=== PATIENT | female | born 1990 | race American Indian/Alaskan Native ===

== ENCOUNTER 2017-05-30 17:50 | Emergency (ER) | payer BC, OTHER ==
[2017-05-30 18:08] VITALS: BP 126/67
[2017-05-30] MEDS ORDERED: Sodium Chloride 0.9% 10 ML Syringe FLUSH PRN (18:48)
[2017-05-30] MEDS ORDERED: Pantoprazole 40 MG Vial IVPUSH ONE (18:48)
[2017-05-30] MEDS ORDERED: HYDROmorphone 0.5 MG/0.5 ML Syringe IVPUSH ONE ×2 (18:48→20:39)
[2017-05-30] MEDS ORDERED: Ondansetron 4 MG/2 ML SDV IVPUSH ONE (18:48)
[2017-05-30] MEDS ORDERED: Sodium Chloride 0.9% 1,000 ML IV ONE (18:48)
--- NOTE | 2017-05-30 18:56 | EDM.PDOC ---
ED HPI GENERAL MEDICAL PROBLEM - General Chief Complaint: Abdominal Pain Stated Complaint: ABDOMINAL PAIN/VOMITING Time Seen by Provider: 05/30/17 18:34 Source of Information: Reports: Patient History Limitations: Reports: Other (Severe headache, tearful) - History of Present Illness INITIAL COMMENTS - FREE TEXT/NARRATIVE: Patient is a 26-year-old female presents ED complaining of severe headache and abdominal pain. Patient states symptoms came on at around noon today. She's been nauseated and vomiting a few times since onset. With coughing symptoms worsen. She is experiencing some photophobia. In addition complains of generalized abdominal discomfort described as a sharp sensation that waxes and wanes in intensity. States shes had multiple bowel movements described as soft and black in color. She has history of anemia requiring blood transfusion 3 wks ago. Scheduled to see a GI doctor in [place] to which she missed appt. States this was rescheduled but did not go since belly was feeling better. She has a history of chronic constipation to which she denies at this time. In addition has a history of acid reflux and has been taking omeprazole religiously. She has chronic back discomfort and is on tramadol and a muscle relaxer for the discomfort. She recently stopped taking these medications after only short-term use. She states the medications made her feel bad. Cough is nonproductive starting today. She denies any sinus congestion, runny nose, sore throat, or ear pain. She's had no fever although she's felt warm at times. Unclear what medications he is currently on. She does not have a complete list. Denies being . Patient has no hx of migraine headache. Headache is severe in nature. She denies recent hx of mosquito bites or exposure to anybody with similar symptoms. Treatments DIRECTOR OPERATING ROOM: Reports: Other (see below) Other Treatments DIRECTOR OPERATING ROOM: tylenol 2 tabs Headache Pain Score (Numeric/FACES): 10 - Related Data Allergies Allergy/AdvReac Type Severity Reaction Status Date / Time No Known Allergies Allergy Verified 05/30/17 18:17 Home Meds: Home Meds Docusate Sodium [Colace] 100 mg PO DAILY 05/30/17 [History] Ferrous Sulfate [Iron] 0 mg PO DAILY 05/30/17 [History] Past Medical History Gastrointestinal History: Reports: Chronic Constipation Other Gastrointestinal History: due bowel surgery Hematologic History: Reports: Anemia - Past Surgical History GI Surgical History: Reports: Appendectomy Other GI Surgeries/Procedures: infection post surgical appy due to ruptured appy ; small bowel and large bowel sections removed due to appy complications Social & Family History - Tobacco Use Smoking Status *Q: Current Every Day Smoker Years of Tobacco use: 5 Packs/Tins Daily: 0.5 - Caffeine Use Caffeine Use: Reports: Coffee, Tea - Recreational Drug Use Recreational Drug Type: Reports: Marijuana/Hashish ED ROS GENERAL - Review of Systems Review Of Systems: See Below Constitutional: Reports: Fever, Chills, Malaise, Weakness, Decreased Appetite HEENT: Reports: No Symptoms. Denies: Vision Change Respiratory: Reports: Cough. Denies: Shortness of Breath, Sputum Cardiovascular: Denies: Chest Pain, Dyspnea on Exertion, Palpitations, PND Endocrine: Reports: Fatigue GI/Abdominal: Reports: Abdominal Pain, Black Stool, Decreased Appetite, Difficulty Swallowing, Melena, Nausea, Vomiting, Other (Patient has had multiple abdominal surgeries.). Denies: Bloody Stool, Constipation, Diarrhea, Hematemesis, Hematochezia : Reports: No Symptoms Musculoskeletal: Reports: No Symptoms Skin: Denies: Rash Neurological: Reports: Dizziness, Headache, Weakness. Denies: Numbness, Tingling Hematologic/Lymphatic: Reports: Anemia. Denies: Easy Bruising Free Text/Narrative/Comment: Patient denies any history of recent mosquito or was tick bites. - Physical Exam Exam: See Below Exam Limited By: No Limitations General Appearance: Alert, WD/WN, Severe Distress (towel over her head.) Eye Exam: Bilateral Eye: EOMI, PERRL Ears: Hearing Grossly Normal Nose: Normal Inspection Throat/Mouth: Normal Inspection, Normal Oropharynx, Normal Voice, No Airway Compromise Head Exam: Atraumatic, Facial Tenderness (forehead) Neck: Normal Inspection, Supple, Non-Tender, Full Range of Motion, Other (No nuchal rigidity. ) Respiratory/Chest: No Respiratory Distress, Lungs Clear, Normal Breath Sounds, No Accessory Muscle Use, Chest Non-Tender Cardiovascular: Normal Peripheral Pulses, Regular Rate, Rhythm GI/Abdominal: Normal Bowel Sounds, Soft, No Organomegaly, No Distention, Tender (generalized) Neuro Exam (Abbreviated): Alert, Oriented, CN II-XII Intact, Normal Cognition, No Motor/Sensory Deficits Back Exam: Normal Inspection Extremities: Normal Inspection, Normal Range of Motion, Non-Tender Psychiatric: Tearful Skin Exam: Warm, Dry, Intact, Normal Color, No Rash Course - Vital Signs Last Recorded V/S: Last Vital Signs Temp 97.8 F 05/30/17 18:06 Pulse 80 05/30/17 18:06 Resp 20 05/30/17 18:06 BP 126/67 05/30/17 18:06 Pulse Ox 100 05/30/17 18:06 - Orders/Labs/Meds Orders: Active Orders 24 hr Category Date Time Status Peripheral IV Care [RC] . DIRECTED Care 05/30/17 18:48 Active [facility] [REF] Stat Lab 05/30/17 18:20 Received Sodium Chloride 0.9% [Saline Flush] Med 05/30/17 18:48 Active 10 ml FLUSH ASDIRECTED PRN Peripheral IV Insertion Adult [OM.PC] Stat Oth 05/30/17 18:48 Ordered Medication Orders Sodium Chloride (Saline Flush) 10 ml FLUSH ASDIRECTED PRN PRN Reason: Keep Vein Open Last Admin: 05/30/17 19:08 Dose: 10 ml Labs: Laboratory Tests 05/30/17 05/30/17 05/30/17 Range/Units 18:20 18:20 18:20 WBC 10.47 H (3.98-10.04) K/mm3 RBC 4.64 (3.98-5.22) M/mm3 Hgb 9.1 L (11.2-15.7) gm/L Hct 30.1 L (34.1-44.9) % MCV 64.9 L (79.4-94.8) fl MCH 19.6 L (25.6-32.2) pg MCHC 30.2 L (32.2-35.5) g/dl RDW Std Deviation 59.2 H (36.4-46.3) fL Plt Count 590 H (182-369) K/mm3 MPV 9.4 (9.4-12.3) fl Neut % (Auto) 83.9 H (34.0-71.1) % Lymph % (Auto) 9.2 L (19.3-51.7) % Barnes % (Auto) 6.2 (4.7-12.5) % Eos % (Auto) 0.3 L (0.7-5.8) Baso % (Auto) 0.2 (0.1-1.2) % Neut # (Auto) 8.79 H (1.56-6.13) K/mm3 Lymph # (Auto) 0.96 L (1.18-3.74) K/mm3 Barnes # (Auto) 0.65 H (0.24-0.36) K/mm3 Eos # (Auto) 0.03 L (0.04-0.36) K/mm3 Baso # (Auto) 0.02 (0.01-0.08) K/mm3 Manual Slide Review Abnormal smear ESR (0-20) mm/hr Sodium 138 (136-145) mEq/L Potassium 3.9 (3.5-5.1) mEq/L Chloride 103 (98-107) mEq/L Carbon Dioxide 24 (21-32) mEq/L Anion Gap 14.9 (5-15) BUN 8 (7-18) mg/dL Creatinine 1.0 (0.55-1.02) mg/dL Est Cr Clr Drug Dosing 83.13 mL/min Estimated GFR (MDRD) > 60 (>60) mL/min BUN/Creatinine Ratio 8.0 L (14-18) Glucose 96 (74-106) mg/dL Calcium 9.1 (8.5-10.1) mg/dL Total Bilirubin 0.5 (0.2-1.0) mg/dL AST 26 (15-37) U/L ALT 25 (14-59) U/L Alkaline Phosphatase 66 (46-116) U/L C-Reactive Protein < 0.2 (<1.0) mg/dL Total Protein 7.5 (6.4-8.2) g/dl Albumin 3.8 (3.4-5.0) g/dl Globulin 3.7 gm/dL Albumin/Globulin Ratio 1.0 (1-2) Lipase 97 (73-393) U/L TSH 3rd Generation 0.546 (0.358-3.74) uIU/mL HCG, Qual Negative (NEGATIVE) Urine Color (Yellow) Urine Appearance (Clear) Urine pH (5.0-8.0) Ur Specific [place] (1.005-1.030) Urine Protein (Negative) Urine Glucose (UA) (Negative) Urine Ketones (Negative) Urine Occult Blood (Negative) Urine Nitrite (Negative) Urine Bilirubin (Negative) Urine Urobilinogen (0.2-1.0) Ur Leukocyte Esterase (Negative) Urine RBC (0-5) /hpf Urine WBC (0-5) /hpf Ur Epithelial Cells (0-5) /hpf Amorphous Sediment (NOT SEEN) /hpf Urine Bacteria (FEW) /hpf Urine Mucus (FEW) /hpf Urine Opiates Screen (NEGATIVE) Ur Buprenorphine Scrn (NEGATIVE) Ur Oxycodone Screen (NEGATIVE) Urine Methadone Screen (NEGATIVE) Ur Propoxyphene Screen (NEGATIVE) Ur Barbiturates Screen (NEGATIVE) Ur Tricyclics Screen (NEGATIVE) Ur Phencyclidine Scrn (NEGATIVE) Ur Amphetamine Screen (NEGATIVE) U Methamphetamines Scrn (NEGATIVE) U Benzodiazepines Scrn (NEGATIVE) U Cocaine Metab Screen (NEGATIVE) U Marijuana (THC) Screen (NEGATIVE) 05/30/17 05/30/17 05/30/17 Range/Units 18:20 19:30 19:30 WBC (3.98-10.04) K/mm3 RBC (3.98-5.22) M/mm3 Hgb (11.2-15.7) gm/L Hct (34.1-44.9) % MCV (79.4-94.8) fl MCH (25.6-32.2) pg MCHC (32.2-35.5) g/dl RDW Std Deviation (36.4-46.3) fL Plt Count (182-369) K/mm3 MPV (9.4-12.3) fl Neut % (Auto) (34.0-71.1) % Lymph % (Auto) (19.3-51.7) % Barnes % (Auto) (4.7-12.5) % Eos % (Auto) (0.7-5.8) Baso % (Auto) (0.1-1.2) % Neut # (Auto) (1.56-6.13) K/mm3 Lymph # (Auto) (1.18-3.74) K/mm3 Barnes # (Auto) (0.24-0.36) K/mm3 Eos # (Auto) (0.04-0.36) K/mm3 Baso # (Auto) (0.01-0.08) K/mm3 Manual Slide Review ESR 16 (0-20) mm/hr Sodium (136-145) mEq/L Potassium (3.5-5.1) mEq/L Chloride (98-107) mEq/L Carbon Dioxide (21-32) mEq/L Anion Gap (5-15) BUN (7-18) mg/dL Creatinine (0.55-1.02) mg/dL Est Cr Clr Drug Dosing mL/min Estimated GFR (MDRD) (>60) mL/min BUN/Creatinine Ratio (14-18) Glucose (74-106) mg/dL Calcium (8.5-10.1) mg/dL Total Bilirubin (0.2-1.0) mg/dL AST (15-37) U/L ALT (14-59) U/L Alkaline Phosphatase (46-116) U/L C-Reactive Protein (<1.0) mg/dL Total Protein (6.4-8.2) g/dl Albumin (3.4-5.0) g/dl Globulin gm/dL Albumin/Globulin Ratio (1-2) Lipase (73-393) U/L TSH 3rd Generation (0.358-3.74) uIU/mL HCG, Qual (NEGATIVE) Urine Color Yellow (Yellow) Urine Appearance Slt cloudy H (Clear) Urine pH 8.5 H (5.0-8.0) Ur Specific [place] 1.015 (1.005-1.030) Urine Protein Negative (Negative) Urine Glucose (UA) Negative (Negative) Urine Ketones 1+ H (Negative) Urine Occult Blood Negative (Negative) Urine Nitrite Negative (Negative) Urine Bilirubin Negative (Negative) Urine Urobilinogen 0.2 (0.2-1.0) Ur Leukocyte Esterase Negative (Negative) Urine RBC Not seen (0-5) /hpf Urine WBC 0-5 (0-5) /hpf Ur Epithelial Cells 10-20 H (0-5) /hpf Amorphous Sediment Few H (NOT SEEN) /hpf Urine Bacteria Rare (FEW) /hpf Urine Mucus Not seen (FEW) /hpf Urine Opiates Screen Negative (NEGATIVE) Ur Buprenorphine Scrn Negative (NEGATIVE) Ur Oxycodone Screen Presumptive positive H (NEGATIVE) Urine Methadone Screen Negative (NEGATIVE) Ur Propoxyphene Screen Negative (NEGATIVE) Ur Barbiturates Screen Negative (NEGATIVE) Ur Tricyclics Screen Negative (NEGATIVE) Ur Phencyclidine Scrn Negative (NEGATIVE) Ur Amphetamine Screen Negative (NEGATIVE) U Methamphetamines Scrn Negative (NEGATIVE) U Benzodiazepines Scrn Negative (NEGATIVE) U Cocaine Metab Screen Negative (NEGATIVE) U Marijuana (THC) Screen Presumptive positive H (NEGATIVE) Meds: Medications Generic Name Dose Route Start Last Admin Trade Name Freq PRN Reason Stop Dose Admin Sodium Chloride 10 ml 05/30/17 18:48 05/30/17 19:08 Saline Flush FLUSH 10 ml ASDIRECTED PRN Administration Keep Vein Open Discontinued Medications Generic Name Dose Route Start Last Admin Trade Name Freq PRN Reason Stop Dose Admin Hydromorphone HCl 0.5 mg 05/30/17 18:48 05/30/17 19:06 Dilaudid IVPUSH 05/30/17 18:49 0.5 mg ONETIME ONE Administration Hydromorphone HCl 0.5 mg 05/30/17 20:39 05/30/17 20:44 Dilaudid IVPUSH 05/30/17 20:40 0.5 mg ONETIME ONE Administration Sodium Chloride 1,000 mls @ 999 mls/hr 05/30/17 18:48 05/30/17 19:05 Normal Saline IV 05/30/17 19:48 999 mls/hr ONETIME ONE Administration Ondansetron HCl 4 mg 05/30/17 18:48 05/30/17 19:05 Zofran IVPUSH 05/30/17 18:49 4 mg ONETIME ONE Administration Pantoprazole Sodium 40 mg 05/30/17 18:48 05/30/17 19:08 Protonix Iv IVPUSH 05/30/17 18:49 40 mg ONETIME ONE Administration - Re-Assessments/Exams Free Text/Narrative Re-Assessment/Exam: IV established with normal saline 999 mls per hour, Dilaudid 0.5 mg IVP, Zofran 4 mg IVP, Protonix 40 mg IVP. Initial labs and studies include CBC, chem 14, CRP , lipase, TSH, urine drug tox screen, UA, ESR, and hCG. Stool hemoccult obtained by nursing staff. Once HCG results present will obtain CT of head w/o contrast. 05/30/17 18:57 Hemoccult negative. Labs reviewed:Sodium 138, potassium 3.9, creatinine 1.0, CRP less than 0.2, lipase 97, TSH 0.546, hCG negative, white blood cell count 10.47, hemoglobin 9.1 , MCV 64.9, platelet count 590, neutrophil percentage 83.9, neutrophil #8.79, lymphocyte percentage is 9.2, lymph #0.96, mono number is 0.65, and eosinophils 0.03. Patient has presumably iron deficiency anemia with low MCV and abnormal RBC morphology. 05/30/17 19:48 Reassessment, patients headache has diminished with the above therapies. Still has a headache located left side. No nuchal rigidity. Pain to the posterior aspect of the head base of neck present. Patient appears to be in less distress. CT of the head will be obtained. Ordered [facility]. This is a send out. With recent history of severe headache. 1958 CT of the head obtained. I was present when this was obtained. Patient moved from CT scanner bed to hospital bed with no difficulties. Moved neck freely. CT of the head impression: No acute abnormality is identified on noncontrast head CT study. 05/30/17 20:39 Headache persist although diminished. Abdominal pain has subsided. IV fluids are not completed yet. Ordered Dilaudid 0.5 mg IVP. 05/30/17 21:40 reassessment, patient sleeping comfortably in bed. Headache is a 4 out of 10. She has no abdominal pain. She has been up to the bathroom with no issues. She is ready to be discharged home. Discharge instructions as documented. Departure - Departure Time of Disposition: 21:41 Disposition: Home, Self-Care 01 Condition: Good Clinical Impression: Headache Qualifiers: Headache type: tension-type Headache chronicity pattern: acute headache Intractability: not intractable Qualified Code(s): G44.209 - Tension-type headache, unspecified, not intractable Abdominal pain Qualifiers: Abdominal location: generalized Qualified Code(s): R10.84 - Generalized abdominal pain - Discharge Information Instructions: Abdominal Pain, Adult, [id number], Nausea and Vomiting, Adult, [id number] Referrals: Meredith Garcia MD [Primary Care Provider] - Forms: ED Department Discharge Additional Instructions: No driving this evening since receiving a sedative medication while in the ED. Continue taking omeprazole as prescribed. Follow-up with your PCP in the next week for reevaluation and to complete iron testing. Push the fluids. Refrain from any foods/drinks that cause aggravation stomach. Utilize Tylenol 650 mg every 4-6 hours for pain. Return back to the ED for any new or worsening symptoms. - My Orders Last 24 Hours: My Active Orders 05/30/17 18:20 [facility] [REF] Stat 05/30/17 18:48 Peripheral IV Care [RC] . DIRECTED Sodium Chloride 0.9% [Saline Flush] 10 ml FLUSH ASDIRECTED PRN Peripheral IV Insertion Adult [OM.PC] Stat - Assessment/Plan Last 24 Hours: My Active Orders 05/30/17 18:20 [facility] IGM [REF] Stat 05/30/17 18:48 Peripheral IV Care [RC] . DIRECTED Sodium Chloride 0.9% [Saline Flush] 10 ml FLUSH ASDIRECTED PRN Peripheral IV Insertion Adult [OM.PC] Stat
--- NOTE | 2017-05-30 20:08 | CT ---
Head CT Technique: Multiple axial sections through the brain were obtained. Intravenous contrast was utilized. Comparison: No previous intracranial imaging is available. Findings: Ventricles along with basal cisterns and sulci over the convexities are within normal limits for the patient's age. No abnormal parenchymal densities are seen. No evidence of intracranial hemorrhage. No midline shift or mass effect is seen. Bone window settings were reviewed which shows no discrete calvarial abnormality. Visualized sinuses are clear. Impression: 1. No acute abnormality is identified on noncontrast head CT study. Diagnostic code #1
== END 2017-05-30 21:53 | disposition home or self-care (01) ==
LOC: JD.ED 17:50 → SUPCPDRO 17:50 → JD.ED 21:53
DX: G44.209 Tension-type headache, unspecified, not intractable (principal); R10.84 Generalized abdominal pain; F17.210 Nicotine dependence, cigarettes, uncomplicated; Z90.49 Acquired absence of other specified parts of digestive tract; Z86.2 Personal history of diseases of the blood and blood-forming organs and certain disorders involving the immune mechanism; Z79.899 Other long term (current) drug therapy
CPT/HCPCS: 36415; 70450; 80053; 80306; 81001; 82270; 83690; 84443; 84703; 85025; 85652; 86140; 96361; 96374; 96375; 96376; 99284; C9113; J1170; J2405; J7040; J7050; 86788

== ENCOUNTER 2018-02-05 14:22 | Emergency (ER) | payer SELFPAY ==
[2018-02-05] MEDS ORDERED: Sodium Chloride 0.9% 10 ML Syringe FLUSH PRN (15:03)
[2018-02-05] MEDS ORDERED: Ondansetron 4 MG/2 ML SDV IVPUSH ONE ×2 (15:03→17:16)
[2018-02-05] MEDS ORDERED: HYDROmorphone 0.5 MG/0.5 ML SYRINGE IVPUSH ONE ×2 (15:03→17:30)
[2018-02-05] MEDS ORDERED: Sodium Chloride 0.9% 1,000 ML IV ONE (15:03)
--- NOTE | 2018-02-05 15:11 | EDM.PDOC ---
<Lona Gutierrez - Last Filed: 02/05/18 18:51> ED HPI GENERAL MEDICAL PROBLEM - General Chief Complaint: Abdominal Pain Stated Complaint: ABDOMINAL PAIN Time Seen by Provider: 02/05/18 14:55 - Related Data Allergies Allergy/AdvReac Type Severity Reaction Status Date / Time No Known Allergies Allergy Verified 05/30/17 18:17 Home Meds: Home Meds Acetaminophen/HYDROcodone [[place] 325-5 MG] 1 tab PO Q6H PRN #5 tablet 02/05/18 [ Rx] Linaclotide [Linzess] 1 tab PO DAILY 02/05/18 [History] Magnesium Citrate 296 ml PO ONETIME #1 solution 02/05/18 [Rx] Course - Vital Signs Last Recorded V/S: Last Vital Signs Temp 98.6 F 02/05/18 19:10 Pulse 76 02/05/18 19:10 Resp 16 02/05/18 19:10 BP 105/59 L 02/05/18 19:10 Pulse Ox 97 02/05/18 19:10 Orthostatic Blood Pressure [ 120/88 Standing] Orthostatic Blood Pressure [ 112/74 Sitting] Orthostatic Blood Pressure [ 130/75 Supine] - Orders/Labs/Meds Orders: Active Orders 24 hr Category Date Time Status Peripheral IV Care [RC] . DIRECTED Care 02/05/18 15:03 Active DRUG SCREEN, URINE [URCHEM] Stat Lab 02/05/18 17:27 Ordered Peripheral IV Insertion Adult [OM.PC] Routine Oth 02/05/18 15:03 Ordered Labs: Laboratory Tests 02/05/18 02/05/18 02/05/18 Range/Units 15:25 15:25 15:25 WBC 15.05 H (3.98-10.04) K/mm3 RBC 4.86 (3.98-5.22) M/mm3 Hgb 8.9 L (11.2-15.7) gm/L Hct 30.2 L (34.1-44.9) % MCV 62.1 L (79.4-94.8) fl MCH 18.3 L (25.6-32.2) pg MCHC 29.5 L (32.2-35.5) g/dl RDW Std Deviation 40.8 (36.4-46.3) fL Plt Count 532 H (182-369) K/mm3 MPV 9.4 (9.4-12.3) fl Neutrophils % (Manual) 90 H (40-60) % Band Neutrophils % 0 (0-10) % Lymphocytes % (Manual) 4 L (20-40) % Atypical Lymphs % 0 % Monocytes % (Manual) 5 (2-10) % Eosinophils % (Manual) 0 L (0.7-5.8) % Basophils % (Manual) 1 (0.1-1.2) Platelet Estimate Adequate Plt Morphology Comment Normal Hypochromasia 3+ marked Poikilocytosis 3+ marked Microcytosis 2+ moderate RBC Morph Comment Not Reportable Sodium 136 (136-145) mEq/L Potassium 3.5 (3.5-5.1) mEq/L Chloride 104 (98-107) mEq/L Carbon Dioxide 22 (21-32) mEq/L Anion Gap 13.5 (5-15) BUN 7 (7-18) mg/dL Creatinine 0.8 (0.55-1.02) mg/dL Est Cr Clr Drug Dosing 99.20 mL/min Estimated GFR (MDRD) > 60 (>60) mL/min BUN/Creatinine Ratio 8.8 L (14-18) Glucose 96 (74-106) mg/dL Lactic Acid 1.4 (0.4-2.0) mmol/L Calcium 9.0 (8.5-10.1) mg/dL Total Bilirubin 0.4 (0.2-1.0) mg/dL AST 22 (15-37) U/L ALT 22 (14-59) U/L Alkaline Phosphatase 74 (46-116) U/L C-Reactive Protein < 0.2 (<1.0) mg/dL Total Protein 7.4 (6.4-8.2) g/dl Albumin 3.9 (3.4-5.0) g/dl Globulin 3.5 gm/dL Albumin/Globulin Ratio 1.1 (1-2) Lipase 98 (73-393) U/L HCG, Qual (NEGATIVE) Urine Color (Yellow) Urine Appearance (Clear) Urine pH (5.0-8.0) Ur Specific [place] (1.005-1.030) Urine Protein (Negative) Urine Glucose (UA) (Negative) Urine Ketones (Negative) Urine Occult Blood (Negative) Urine Nitrite (Negative) Urine Bilirubin (Negative) Urine Urobilinogen (0.2-1.0) Ur Leukocyte Esterase (Negative) Urine RBC (0-5) /hpf Urine WBC (0-5) /hpf Ur Epithelial Cells (0-5) /hpf Urine Bacteria (FEW) /hpf Urine Mucus (FEW) /hpf Urine Opiates Screen (NEGATIVE) Ur Buprenorphine Scrn (NEGATIVE) Ur Oxycodone Screen (NEGATIVE) Urine Methadone Screen (NEGATIVE) Ur Propoxyphene Screen (NEGATIVE) Ur Barbiturates Screen (NEGATIVE) Ur Tricyclics Screen (NEGATIVE) Ur Phencyclidine Scrn (NEGATIVE) Ur Amphetamine Screen (NEGATIVE) U Methamphetamines Scrn (NEGATIVE) U Benzodiazepines Scrn (NEGATIVE) U Cocaine Metab Screen (NEGATIVE) U Marijuana (THC) Screen (NEGATIVE) 02/05/18 02/05/18 02/05/18 Range/Units 15:25 16:45 17:27 WBC (3.98-10.04) K/mm3 RBC (3.98-5.22) M/mm3 Hgb (11.2-15.7) gm/L Hct (34.1-44.9) % MCV (79.4-94.8) fl MCH (25.6-32.2) pg MCHC (32.2-35.5) g/dl RDW Std Deviation (36.4-46.3) fL Plt Count (182-369) K/mm3 MPV (9.4-12.3) fl Neutrophils % (Manual) (40-60) % Band Neutrophils % (0-10) % Lymphocytes % (Manual) (20-40) % Atypical Lymphs % % Monocytes % (Manual) (2-10) % Eosinophils % (Manual) (0.7-5.8) % Basophils % (Manual) (0.1-1.2) Platelet Estimate Plt Morphology Comment Hypochromasia Poikilocytosis Microcytosis RBC Morph Comment Sodium (136-145) mEq/L Potassium (3.5-5.1) mEq/L Chloride (98-107) mEq/L Carbon Dioxide (21-32) mEq/L Anion Gap (5-15) BUN (7-18) mg/dL Creatinine (0.55-1.02) mg/dL Est Cr Clr Drug Dosing mL/min Estimated GFR (MDRD) (>60) mL/min BUN/Creatinine Ratio (14-18) Glucose (74-106) mg/dL Lactic Acid (0.4-2.0) mmol/L Calcium (8.5-10.1) mg/dL Total Bilirubin (0.2-1.0) mg/dL AST (15-37) U/L ALT (14-59) U/L Alkaline Phosphatase (46-116) U/L C-Reactive Protein (<1.0) mg/dL Total Protein (6.4-8.2) g/dl Albumin (3.4-5.0) g/dl Globulin gm/dL Albumin/Globulin Ratio (1-2) Lipase (73-393) U/L HCG, Qual Negative (NEGATIVE) Urine Color Yellow (Yellow) Urine Appearance Clear (Clear) Urine pH 6.5 (5.0-8.0) Ur Specific [place] 1.020 (1.005-1.030) Urine Protein Negative (Negative) Urine Glucose (UA) Negative (Negative) Urine Ketones 1+ H (Negative) Urine Occult Blood Negative (Negative) Urine Nitrite Negative (Negative) Urine Bilirubin Negative (Negative) Urine Urobilinogen 0.2 (0.2-1.0) Ur Leukocyte Esterase Trace H (Negative) Urine RBC 0-5 (0-5) /hpf Urine WBC 0-5 (0-5) /hpf Ur Epithelial Cells 0-5 (0-5) /hpf Urine Bacteria Rare (FEW) /hpf Urine Mucus Not seen (FEW) /hpf Urine Opiates Screen Negative (NEGATIVE) Ur Buprenorphine Scrn Negative (NEGATIVE) Ur Oxycodone Screen Presumptive positive H (NEGATIVE) Urine Methadone Screen Negative (NEGATIVE) Ur Propoxyphene Screen Negative (NEGATIVE) Ur Barbiturates Screen Negative (NEGATIVE) Ur Tricyclics Screen Negative (NEGATIVE) Ur Phencyclidine Scrn Negative (NEGATIVE) Ur Amphetamine Screen Negative (NEGATIVE) U Methamphetamines Scrn Negative (NEGATIVE) U Benzodiazepines Scrn Negative (NEGATIVE) U Cocaine Metab Screen Negative (NEGATIVE) U Marijuana (THC) Screen Presumptive positive H (NEGATIVE) Meds: Medications Discontinued Medications Generic Name Dose Route Start Last Admin Trade Name Freq PRN Reason Stop Dose Admin Diatrizoate Meglum/Diatrizoate Sod 90 ml 02/05/18 17:51 02/05/18 18:03 Gastrografin 37% PO 02/05/18 17:52 90 ml ONETIME ONE Administration Hydromorphone HCl 0.5 mg 02/05/18 15:03 02/05/18 15:28 Dilaudid IVPUSH 02/05/18 15:04 0.5 mg ONETIME ONE Administration Hydromorphone HCl 0.5 mg 02/05/18 17:30 02/05/18 17:50 Dilaudid IVPUSH 02/05/18 17:31 0.5 mg ONETIME ONE Administration Sodium Chloride 1,000 mls @ 250 mls/hr 02/05/18 15:03 02/05/18 15:29 Normal Saline IV 02/05/18 19:02 250 mls/hr ONETIME ONE Administration Iopamidol 100 ml 02/05/18 17:51 02/05/18 18:03 Isovue-300 (61%) IVPUSH 02/05/18 17:52 100 ml ONETIME ONE Administration Ondansetron HCl 4 mg 02/05/18 15:03 02/05/18 15:28 Zofran IVPUSH 02/05/18 15:04 4 mg ONETIME ONE Administration Ondansetron HCl 4 mg 02/05/18 17:16 02/05/18 17:20 Zofran IVPUSH 02/05/18 17:17 4 mg ONETIME ONE Administration Sodium Chloride 10 ml 02/05/18 15:03 02/05/18 15:29 Saline Flush FLUSH 10 ml ASDIRECTED PRN Administration Keep Vein Open Sodium Chloride 10 ml 02/05/18 17:51 02/05/18 18:03 Saline Flush FLUSH 02/05/18 17:52 10 ml ONETIME ONE Administration - Re-Assessments/Exams Free Text/Narrative Re-Assessment/Exam: 02/05/18 18:51 Hemocult negative, hard stool presents in the rectum. Departure - Departure Disposition: Home, Self-Care 01 Clinical Impression: Abdominal pain Qualifiers: Abdominal location: generalized Qualified Code(s): R10.84 - Generalized abdominal pain Constipation Qualifiers: Constipation type: drug induced constipation Qualified Code(s): K59.03 - Drug induced constipation - Discharge Information Prescriptions: Acetaminophen/HYDROcodone [[place] 325-5 MG] 1 tab PO Q6H PRN #5 tablet PRN Reason: Pain (Severe 7-10) Magnesium Citrate 296 ml PO ONETIME #1 solution Instructions: Abdominal Pain, Adult, Constipation, Adult Referrals: PCP,Not In Area [Primary Care Provider] - Forms: ED Department Discharge Additional Instructions: Suspect cause of abdominal discomfort is related to constipation. Thus will have you take makes citrate one half bottle this evening and then the other half tomorrow morning. Take MiraLAX one capful every day with copious amounts water and/or juice. Increase your fiber intake including vegetables and fruits. For severe pain may take [place] one tab by mouth every 6 hours as needed. Keep in mind this will also cause constipation so only use if pain is severe. Follow- up with PCP in the next few days for reevaluation. Return to the ED if you develop any new or worsening symptoms. Do not drive this evening since receiving a sedative medication. Do not drive while he [place]. - My Orders Last 24 Hours: My Active Orders 02/05/18 15:03 Peripheral IV Care [RC] . DIRECTED Peripheral IV Insertion Adult [OM.PC] Routine 02/05/18 17:27 DRUG SCREEN, URINE [URCHEM] Stat - Assessment/Plan Last 24 Hours: My Active Orders 02/05/18 15:03 Peripheral IV Care [RC] . DIRECTED Peripheral IV Insertion Adult [OM.PC] Routine 02/05/18 17:27 DRUG SCREEN, URINE [URCHEM] Stat <Jem Pa O - Last Filed: 02/06/18 08:47> ED HPI GENERAL MEDICAL PROBLEM - General Source of Information: Reports: Patient History Limitations: Reports: No Limitations - History of Present Illness INITIAL COMMENTS - FREE TEXT/NARRATIVE: Patient is a 27-year-old female with a history of IBS who presents ED complaining of severe abdominal pain that's described as intermittent with waxing waning in intensity. States pain when it comes on is quite severe sharp in nature generalized throughout her abdomen. She has been nauseated with multiple episodes of emesis with or stomach bile. There is no blood present. She 's had 3 episodes today. She doesn't history of ruptured appendix requiring open surgery. She has no gallbladder. Thus increasing risk of adhesions. She's had no history of small bowel obstruction. She is on linzess for IBS. Has history of constipation and has not had a BM for 2 days. Denies any fever, abnormal vaginal discharge, being , pain with urination, or any additional complaints. She states this feels like her constipation. Per patient patient's hemoglobin was 5 and while back. She is on iron. She has dark stools. Does not describe with any blood present or tarry in nature. She is on iron supplementation. States she has ulcers along the suture lines where the colon was reattached. 8.9 is not a abnormal number for her. 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: Other (See Below) Other OB/BYN History: irregular periods Musculoskeletal History: Reports: Back Pain, Chronic Hematologic History: Reports: Anemia - Past Surgical History GI Surgical History: Reports: Appendectomy Other GI Surgeries/Procedures: infection post surgical appy due to ruptured appy ; small bowel and large bowel sections removed due to appy complications Social & Family History - Family History Family Medical History: Noncontributory - Tobacco Use Smoking Status *Q: Current Every Day Smoker Years of Tobacco use: 3 Packs/Tins Daily: 0.5 - Caffeine Use Caffeine Use: Reports: Coffee - Recreational Drug Use Recreational Drug Use: No Recreational Drug Type: Reports: Marijuana/Hashish ED ROS GENERAL - Review of Systems Review Of Systems: See Below Constitutional: Reports: Decreased Appetite. Denies: Malaise, Weakness HEENT: Reports: No Symptoms Respiratory: Reports: No Symptoms Cardiovascular: Reports: No Symptoms GI/Abdominal: Reports: Abdominal Pain, Constipation, Decreased Appetite, Nausea , Vomiting. Denies: Black Stool, Bloody Stool, Diarrhea, Hematemesis, Hematochezia, Melena : Reports: No Symptoms Musculoskeletal: Reports: No Symptoms Psychiatric: Reports: Anxiety ED EXAM, GI/ABD - Physical Exam Exam: See Below Exam Limited By: No Limitations General Appearance: Alert, WD/WN, Moderate Distress Eyes: Bilateral: Normal Appearance Ears: Hearing Grossly Normal Nose: Normal Inspection Throat/Mouth: Normal Voice, No Airway Compromise Neck: Normal Inspection, Supple Respiratory/Chest: No Respiratory Distress, Lungs Clear, Normal Breath Sounds, No Accessory Muscle Use Cardiovascular: Normal Peripheral Pulses, Regular Rate, Rhythm GI/Abdominal Exam: Normal Bowel Sounds, Soft, No Organomegaly, No Distention, Tender (throughout, large midline surgical scar. ) Extremities: Normal Inspection Neurological: Alert, Oriented, CN II-XII Intact, Normal Cognition, No Motor/ Sensory Deficits Psychiatric: Normal Affect, Normal Mood Skin Exam: Warm, Dry, Intact, Pallor Course - Orders/Labs/Meds Labs: Laboratory Tests 02/05/18 02/05/18 02/05/18 Range/Units 15:25 15:25 15:25 WBC 15.05 H (3.98-10.04) K/mm3 RBC 4.86 (3.98-5.22) M/mm3 Hgb 8.9 L (11.2-15.7) gm/L Hct 30.2 L (34.1-44.9) % MCV 62.1 L (79.4-94.8) fl MCH 18.3 L (25.6-32.2) pg MCHC 29.5 L (32.2-35.5) g/dl RDW Std Deviation 40.8 (36.4-46.3) fL Plt Count 532 H (182-369) K/mm3 MPV 9.4 (9.4-12.3) fl Neutrophils % (Manual) 90 H (40-60) % Band Neutrophils % 0 (0-10) % Lymphocytes % (Manual) 4 L (20-40) % Atypical Lymphs % 0 % Monocytes % (Manual) 5 (2-10) % Eosinophils % (Manual) 0 L (0.7-5.8) % Basophils % (Manual) 1 (0.1-1.2) Platelet Estimate Adequate Plt Morphology Comment Normal Hypochromasia 3+ marked Poikilocytosis 3+ marked Microcytosis 2+ moderate RBC Morph Comment Not Reportable Sodium 136 (136-145) mEq/L Potassium 3.5 (3.5-5.1) mEq/L Chloride 104 (98-107) mEq/L Carbon Dioxide 22 (21-32) mEq/L Anion Gap 13.5 (5-15) BUN 7 (7-18) mg/dL Creatinine 0.8 (0.55-1.02) mg/dL Est Cr Clr Drug Dosing 99.20 mL/min Estimated GFR (MDRD) > 60 (>60) mL/min BUN/Creatinine Ratio 8.8 L (14-18) Glucose 96 (74-106) mg/dL Lactic Acid 1.4 (0.4-2.0) mmol/L Calcium 9.0 (8.5-10.1) mg/dL Total Bilirubin 0.4 (0.2-1.0) mg/dL AST 22 (15-37) U/L ALT 22 (14-59) U/L Alkaline Phosphatase 74 (46-116) U/L C-Reactive Protein < 0.2 (<1.0) mg/dL Total Protein 7.4 (6.4-8.2) g/dl Albumin 3.9 (3.4-5.0) g/dl Globulin 3.5 gm/dL Albumin/Globulin Ratio 1.1 (1-2) Lipase 98 (73-393) U/L HCG, Qual (NEGATIVE) Urine Color (Yellow) Urine Appearance (Clear) Urine pH (5.0-8.0) Ur Specific [place] (1.005-1.030) Urine Protein (Negative) Urine Glucose (UA) (Negative) Urine Ketones (Negative) Urine Occult Blood (Negative) Urine Nitrite (Negative) Urine Bilirubin (Negative) Urine Urobilinogen (0.2-1.0) Ur Leukocyte Esterase (Negative) Urine RBC (0-5) /hpf Urine WBC (0-5) /hpf Ur Epithelial Cells (0-5) /hpf Urine Bacteria (FEW) /hpf Urine Mucus (FEW) /hpf Urine Opiates Screen (NEGATIVE) Ur Buprenorphine Scrn (NEGATIVE) Ur Oxycodone Screen (NEGATIVE) Urine Methadone Screen (NEGATIVE) Ur Propoxyphene Screen (NEGATIVE) Ur Barbiturates Screen (NEGATIVE) Ur Tricyclics Screen (NEGATIVE) Ur Phencyclidine Scrn (NEGATIVE) Ur Amphetamine Screen (NEGATIVE) U Methamphetamines Scrn (NEGATIVE) U Benzodiazepines Scrn (NEGATIVE) U Cocaine Metab Screen (NEGATIVE) U Marijuana (THC) Screen (NEGATIVE) 02/05/18 02/05/18 02/05/18 Range/Units 15:25 16:45 17:27 WBC (3.98-10.04) K/mm3 RBC (3.98-5.22) M/mm3 Hgb (11.2-15.7) gm/L Hct (34.1-44.9) % MCV (79.4-94.8) fl MCH (25.6-32.2) pg MCHC (32.2-35.5) g/dl RDW Std Deviation (36.4-46.3) fL Plt Count (182-369) K/mm3 MPV (9.4-12.3) fl Neutrophils % (Manual) (40-60) % Band Neutrophils % (0-10) % Lymphocytes % (Manual) (20-40) % Atypical Lymphs % % Monocytes % (Manual) (2-10) % Eosinophils % (Manual) (0.7-5.8) % Basophils % (Manual) (0.1-1.2) Platelet Estimate Plt Morphology Comment Hypochromasia Poikilocytosis Microcytosis RBC Morph Comment Sodium (136-145) mEq/L Potassium (3.5-5.1) mEq/L Chloride (98-107) mEq/L Carbon Dioxide (21-32) mEq/L Anion Gap (5-15) BUN (7-18) mg/dL Creatinine (0.55-1.02) mg/dL Est Cr Clr Drug Dosing mL/min Estimated GFR (MDRD) (>60) mL/min BUN/Creatinine Ratio (14-18) Glucose (74-106) mg/dL Lactic Acid (0.4-2.0) mmol/L Calcium (8.5-10.1) mg/dL Total Bilirubin (0.2-1.0) mg/dL AST (15-37) U/L ALT (14-59) U/L Alkaline Phosphatase (46-116) U/L C-Reactive Protein (<1.0) mg/dL Total Protein (6.4-8.2) g/dl Albumin (3.4-5.0) g/dl Globulin gm/dL Albumin/Globulin Ratio (1-2) Lipase (73-393) U/L HCG, Qual Negative (NEGATIVE) Urine Color Yellow (Yellow) Urine Appearance Clear (Clear) Urine pH 6.5 (5.0-8.0) Ur Specific [place] 1.020 (1.005-1.030) Urine Protein Negative (Negative) Urine Glucose (UA) Negative (Negative) Urine Ketones 1+ H (Negative) Urine Occult Blood Negative (Negative) Urine Nitrite Negative (Negative) Urine Bilirubin Negative (Negative) Urine Urobilinogen 0.2 (0.2-1.0) Ur Leukocyte Esterase Trace H (Negative) Urine RBC 0-5 (0-5) /hpf Urine WBC 0-5 (0-5) /hpf Ur Epithelial Cells 0-5 (0-5) /hpf Urine Bacteria Rare (FEW) /hpf Urine Mucus Not seen (FEW) /hpf Urine Opiates Screen Negative (NEGATIVE) Ur Buprenorphine Scrn Negative (NEGATIVE) Ur Oxycodone Screen Presumptive positive H (NEGATIVE) Urine Methadone Screen Negative (NEGATIVE) Ur Propoxyphene Screen Negative (NEGATIVE) Ur Barbiturates Screen Negative (NEGATIVE) Ur Tricyclics Screen Negative (NEGATIVE) Ur Phencyclidine Scrn Negative (NEGATIVE) Ur Amphetamine Screen Negative (NEGATIVE) U Methamphetamines Scrn Negative (NEGATIVE) U Benzodiazepines Scrn Negative (NEGATIVE) U Cocaine Metab Screen Negative (NEGATIVE) U Marijuana (THC) Screen Presumptive positive H (NEGATIVE) - Re-Assessments/Exams Free Text/Narrative Re-Assessment/Exam: IV established with Dilaudid 0.5 mg IVP, Zofran 4 mg IVP, and normal saline 250 mL per hour. Initial labs and studies will include CBC, chem 14, CRP, urine drug test, lipase , UA, hCG, and xray 2 view of the abdomen. Denies being . Labs reviewed: CMP essentially. Lactic acid 1.4. CRP <0.2. HCG negative. WBC 15.05, HGB 8.9, platelet count 532, N%90, and bands 0. Patient's hemoglobin is normally low. Last reading was 9.1. 02/05/18 16:32 X-ray reviewed with Dr. Mckeon concerning for SBO. Ordered CT of the abdomen/pelvis with oral/IV contrast. 02/05/18 17:17 Ordered zofran 4mg IVP for nausea. Stool hemoccult: negative for blood. Per patient HGB is normally 9. UA positive for ketones and leukocyte Estrace. Urine drug tox positive for oxycodone and also marijuana. 02/05/18 18:58 CT abdomen and pelvis impression: Slight increased stool within the colon. No findings of small bowel obstruction. Small amount of free fluid within the pelvis most likely physiologic. Other incidental findings as noted above. Nothing acute is seen. Discussed CT findings with the patient. She is resting comfortably. VSS. She is ready to go home. Will discharge patient home with instructions as documented. Return precautions were discussed with the patient in great detail. She voiced her understanding. Departure - Departure Time of Disposition: 18:58 Condition: Good
--- NOTE | 2018-02-05 17:00 | CR ---
Abdomen: Supine and upright views of the abdomen were obtained. Comparison: No previous study. Slightly prominent gas-filled loops of small bowel are noted. Air-fluid levels are seen. Surgical clips are seen from prior cholecystectomy. Bony structures are unremarkable. No abnormal calcifications or soft tissue abnormality is seen. Impression: 1. Slightly prominent gas-filled loops of small bowel with air-fluid levels. Differential includes early partial small bowel obstruction or gastroenteritis. 2. Prior cholecystectomy. Diagnostic code #3
[2018-02-05] MEDS ORDERED: Iopamidol 612 MG/ML 100 ML Bottle IVPUSH ONE (17:51)
[2018-02-05] MEDS ORDERED: Sodium Chloride 0.9% 10 ML Syringe FLUSH ONE (17:51)
[2018-02-05] MEDS ORDERED: Diatrizoate Meglumine/Diatrizoate Sodium 37% 120 ML Bottle PO ONE (17:51)
--- NOTE | 2018-02-05 18:32 | CT ---
CT abdomen and pelvis Technique: Multiple axial sections were obtained from above the dome of the diaphragm inferiorly through the pubic symphysis. Intravenous and oral contrast was utilized. Comparison: Prior abdominal x-ray performed on the same day (4:11 PM). Findings: Visualized lung bases are clear. Liver shows no focal parenchymal abnormality. Surgical clips are seen from previous cholecystectomy. Spleen appears within normal limits. Adrenal glands show no nodule. Kidneys show contrast enhancement without hydronephrosis or mass. Pancreas is unremarkable. Aorta shows no aneurysmal dilatation. No retroperitoneal adenopathy is seen. No mesenteric abnormalities are seen. Small amount of free fluid is seen within the pelvis most likely physiologic in etiology. Mild increased stool is noted within the colon. Cecum lies within the left lower abdomen. Appendix is not definitely visualized with no inflammatory change or enlarged tubular structure being seen around the cecum. Bone window settings were reviewed which appear within normal limits for the patient's age. Impression: 1. Slight increased stool within the colon. 2. No findings of small bowel obstruction. 3. Small amount of free fluid within the pelvis most likely physiologic. 4. Other incidental findings as noted above. Nothing acute is seen. Diagnostic code #2
[2018-02-05 19:31] VITALS: BP 105/59
== END 2018-02-05 19:17 | disposition home or self-care (01) ==
LOC: JD.ED 14:22
DX: K59.00 Constipation, unspecified (principal); D64.9 Anemia, unspecified; F17.210 Nicotine dependence, cigarettes, uncomplicated; Z90.49 Acquired absence of other specified parts of digestive tract
CPT/HCPCS: 36415; 74019; 74177; 80053; 80306; 81001; 82270; 83605; 83690; 84703; 85025; 86140; 96361; 96374; 96375; 96376; 99285; J1170; J2405; J7040; J7050; Q9963; Q9967; 99284